=== PATIENT | male | born 1950 | race African-American/Black ===

== ENCOUNTER → 2019-07-06 | Outpatient (CLI) | payer OTHER, BC ==
[~2019-07-06] MED LIST: ALLOPURINOL 30300 M2 PO; ASA5UEC PO; ASPIR 8181 MG PO; ELIQUIS5 MG PO; FISH OIL 1,001000 M2 PO; IRBESARTAN-HCT1 EAC1 PO; PRAVACHOL40 MG PO; VITAMIN B-122500 MCG SL; VITAMIN D1000 UNI1 PO
== END ==
LOC: SJCVCIMAG 13:56
PROVIDERS: ATTEND Internal Medicine Cardiovascular Disease
DX: I25.10 Atherosclerotic heart disease of native coronary artery without angina pectoris (principal); I10 Essential (primary) hypertension; Z86.711 Personal history of pulmonary embolism

== ENCOUNTER → 2020-01-23 | Outpatient (CLI) | payer OTHER, BC | LOC: SJCVC 10:05 | PROVIDERS: ATTEND Internal Medicine Cardiovascular Disease | DX: I25.10 Atherosclerotic heart disease of native coronary artery without angina pectoris (principal); I10 Essential (primary) hypertension; E78.00 Pure hypercholesterolemia, unspecified; C61 Malignant neoplasm of prostate; Z86.711 Personal history of pulmonary embolism; Z79.82 Long term (current) use of aspirin; Z79.899 Other long term (current) drug therapy ==

== ENCOUNTER 2020-02-25 10:10 | Emergency (ER) | payer OTHER, BC ==
[~2020-02-25] VITALS: Ht 172.7 cm; Wt 72.6 kg
[2020-02-25] MEDS ORDERED: HYTRIN 2MG CAPSU2 M1 PO (10:30)
[2020-02-25] MEDS ORDERED: LOSARTAN POTASS50 MG PO (10:31)
[2020-02-25] MEDS ORDERED: REPATHA SU140 MG/1 M INH (10:32)
[2020-02-25 11:04] LABS: BASOPHILS 0.9 % (0.0-2.0); EOSINOPHILS 1.8 % (0.0-3.0); HEMATOCRIT 43.4 % (42.0-52.0); HEMOGLOBIN 14.2 gm/dL (14.0-18.0); LYMPHOCYTES 26.4 % (24.0-44.0); MCH 29.5 pg (26.0-34.0); MCHC 32.7 g/dL (28.0-37.0); MCV 90.3 fL (80.0-100.0); MONOCYTES 7.5 % (1.0-8.0); PLATELET COUNT 250 thou/uL (150-400); POLYS 63.4 % (36.0-66.0); RDW 14.2 % (10.5-14.5); WBC 4.7 thou/uL (4.0-11.0)
[2020-02-25 11:06] LABS: ANION GAP 8 mmol/L (7-16); BUN 14 mg/dL (7-18); CALCIUM 9.7 mg/dL (8.5-10.1); CHLORIDE 103 mmol/L (98-107); CO2 27 mmol/L (21-32); CREATININE 1.4 mg/dL (0.7-1.3); GLUCOSE 89 mg/dL (74-106); SODIUM 138 mmol/L (136-145)
[2020-02-25 11:16] LABS: ALBUMIN 4.1 g/dL (3.4-5.0); SGOT 32 U/L (15-37); SGPT 35 U/L (16-63); TOTAL BILIRUBIN 0.5 mg/dL (0.2-1.0); TOTAL PROTEIN 7.4 g/dL (6.4-8.2); TROPONIN-I <0.06 ng/mL (<0.06)
[2020-02-25 12:11] VITALS: BP 160/73
--- NOTE | 2020-02-26 07:24 | EKG ---
[place] [address] [facility] [place] [address] ELECTROCARDIOGRAM REPORT Name: ANG TALAVERA Room #: [facility] [id number] Admission: 02/25/20 Attend Phys: Discharge: 02/25/20 Date of : 52 Report #: [id number] [facility] ED Test Date: 2020-02-25 Test Time: 10:15:51 Pat Name: ANG TALAVERA Department: Room: Gender: M [employer] Feeder: DANNIELLE : 1950 Requested By: Dominic Gatica Order Number: [id number] MD: Randell Dong Measurements Intervals [place] Rate: 67 P: 23 MD: 161 QRS: -5 QRSD: 89 T: 52 QT: 428 QTc: 452 Interpretive Statements Sinus rhythm Probable anteroseptal infarct, old Baseline wander in lead(s) V1 Compared to ECG 08/30/2014 08:29:53 Myocardial infarct finding now present Electronically Signed On 02-26-2020 7:23:53 [employer] by Randell Dong [email or web address] <ELECTRONICALLY SIGNED> By: Randell Dong MD, [facility] 02/26/20 0723 [id number] [id number] Randell Dong MD, FACC /EPI
== END 2020-02-25 12:11 | disposition home or self-care (01) ==
LOC: ER 10:10
PROVIDERS: Emergency Medicine
DX: R07.89 Other chest pain (principal); I10 Essential (primary) hypertension; E78.5 Hyperlipidemia, unspecified; Z86.718 Personal history of other venous thrombosis and embolism; Z79.899 Other long term (current) drug therapy; Z79.82 Long term (current) use of aspirin; Z91.013 Allergy to seafood

== ENCOUNTER → 2020-02-29 | Outpatient (CLI) | payer OTHER, BC ==
[~2020-02-29] MED LIST changes: +HYTRIN 2MG CAPSU2 M1 PO; +LOSARTAN POTASS50 MG PO; +REPATHA SU140 MG/1 M INH
== END ==
LOC: SJCVCIMAG 13:37
PROVIDERS: ATTEND Internal Medicine Cardiovascular Disease
DX: I25.10 Atherosclerotic heart disease of native coronary artery without angina pectoris (principal); I10 Essential (primary) hypertension; R07.9 Chest pain, unspecified; Z79.82 Long term (current) use of aspirin; Z79.899 Other long term (current) drug therapy

== ENCOUNTER → 2020-10-08 | Outpatient (CLI) | payer OTHER, BC | LOC: SJCVC 10:04 | PROVIDERS: ATTEND Internal Medicine Cardiovascular Disease | DX: R94.31 Abnormal electrocardiogram [ECG] [EKG] (principal); I25.10 Atherosclerotic heart disease of native coronary artery without angina pectoris; I10 Essential (primary) hypertension; E78.00 Pure hypercholesterolemia, unspecified; Z86.711 Personal history of pulmonary embolism; Z85.46 Personal history of malignant neoplasm of prostate; Z79.899 Other long term (current) drug therapy; Z72.89 Other problems related to lifestyle ==